=== PATIENT | female | born 1980 | race American Indian/Alaskan Native ===

== ENCOUNTER 2019-03-05 15:31 | Observation (INO) | payer BC, OTHER ==
--- NOTE | 2019-03-05 15:57 | Emergency Department Report ---
Blank Doc - Documentation Documentation: This is a 28-year-old female that presents with chest pain and SOB. Denies hi story of cardiac. Denies radiation of pain. This initial assessment/diagnostic orders/clinical plan/treatment(s) is/are subject to change based on patient's health status, clinical progression and re- assessment by fellow clinical providers in the ED. Further treatment and workup at subsequent clinical providers discretion. Patient/guardians urged not to elope from the ED as their condition may be serious if not clinically assessed and managed. Initial orders include: 1- Patient sent to MAIN ED for further evaluation and treatment 2-labs 3- EKG 4- CXR
[2019-03-05] MEDS ORDERED: ASPIRIN PO ONE (18:00)
[2019-03-05 18:18] LABS: Basophils % (Auto) 0.5 % (0.0-1.8); Eosinophils # (Auto) 0.1 K/mm3 (0.0-0.4); Eosinophils % (Auto) 2.1 % (0.0-4.3); Hematocrit 41.6 % (30.3-42.9); Hemoglobin 13.5 gm/dl (10.1-14.3); Lymphocytes % (Auto) 32.4 % (13.4-35.0); Mean Corpuscular HGB Conc 32 % (30-34); Mean Corpuscular Volume 84 fl (79-97); Monocytes # (Auto) 0.8 K/mm3 (0.0-0.8); Monocytes % (Auto) 12.7 % (0.0-7.3); Platelet Count 265 K/mm3 (140-440); Red Blood Count 4.96 M/mm3 (3.65-5.03); Red Cell Distribution Width 13.6 % (13.2-15.2)
[2019-03-05 18:30] LABS: INR 0.95 (0.87-1.13)
[2019-03-05 18:31] LABS: Partial Thromboplastin Time 27.9 Sec. (24.2-36.6)
--- NOTE | 2019-03-05 18:38 | Emergency Department Report ---
<NOE HORTA III - Last Filed: 03/06/19 02:31> ED Chest Pain HPI - General Chief Complaint: Chest Pain Stated Complaint: CHEST PAIN Time Seen by Provider: 03/05/19 15:55 - Related Data Allergies Allergy/AdvReac Type Severity Reaction Status Date / Time No Known Allergies Allergy Verified 03/05/19 23:41 ED Course - Consultations Consultation #1: Hospitalist consulted for admission. Hospitalist to admit patient. Hospitalist to assume care patient. Dr. Javed to see the patient 03/05/19 23:02 ED Medical Decision Making - Lab Data Result diagrams: 03/05/19 23:42 03/05/19 23:42 ED Disposition Clinical Impression: Abnormal EKG Chest pain Qualifiers: Chest pain type: unspecified Qualified Code(s): R07.9 - Chest pain, unspecified Disposition: OP ADMIT IP TO THIS HOSP Is pt being admited?: Yes Does the pt Need Aspirin: No Condition: Critical Time of Disposition: 02:31 <KAI VANCE - Last Filed: 03/06/19 02:35> ED Chest Pain HPI - General Source: patient Mode of arrival: Ambulatory Limitations: No Limitations - History of Present Illness Initial Comments: Pt is a 38 yo female who presents to the ED with c/o left sided CP that began yesterday. She states that the pain has been constant since 10 AM this morning. She states she has also had paresthesias down the left arm. She has associated SOB. The patient denies any N/V, fever, LE edema, cough, or any other sx. The patient states she traveled on a cruiseship to [facility] [place] last month. She denies any PMHx, she denies any previous hx of HTN. The patient states she takes daily vitamins but no other medications. She is a non smoker, occasion drinker, denies drug use. She denies any recent surgery or OCP use. She denies any personal or family cardiac hx. The patient denies any DVT/PE hx or family hx of DVT/PE. Severity scale (0 -10): 0 Heart Score - HEART Score History: Slightly suspicious EKG: Non-specific Age: < 45 Risk factors: No known risk factors Troponin: < normal limit HEART Score: 1 ED Review of Systems ROS: Stated complaint: CHEST PAIN Other details as noted in HPI Comment: All other systems reviewed and negative ED Past Medical Hx - Past Medical History Previous Medical History?: No - Surgical History Past Surgical History?: No - Social History Smoking Status: Never Smoker Substance Use Type: None ED Physical Exam - General Limitations: No Limitations General appearance: alert, in no apparent distress - Head Head exam: Present: atraumatic, normocephalic - Eye Eye exam: Present: normal appearance, PERRL - ENT ENT exam: Present: mucous membranes moist - Respiratory Respiratory exam: Present: normal lung sounds bilaterally. Absent: respiratory distress, wheezes, rales, rhonchi, stridor, chest wall tenderness, accessory muscle use, decreased breath sounds, prolonged expiratory - Cardiovascular Cardiovascular Exam: Present: regular rate, normal rhythm. Absent: systolic murmur, diastolic murmur, gallop - Neurological Exam Neurological exam: Present: alert, oriented X3 - Psychiatric Psychiatric exam: Present: normal affect, normal mood - Skin Skin exam: Present: warm, dry, intact ED Course Vital Signs 03/05/19 03/05/19 15:43 18:45 Temperature 97.9 F Pulse Rate 83 69 Respiratory 18 16 Rate Blood Pressure 162/100 120/80 [Left] O2 Sat by Pulse 99 100 Oximetry - Reevaluation(s) Reevaluation #1: 03/05/19 21:[address] Horta regarding pt and will admit pt to the hospital for further evaluation and management SANCHO score - Sancho Score Age > 65: (0) No Aspirin use within the Past 7 Days: (0) No 3 or more CAD Risk Factors: (0) No 2 or more Angina events in past 24 hrs: (1) Yes Known CAD with more than 50% Stenosis: (0) No Elevated Cardiac Markers: (0) No ST Deviation Greater than 0.5mm: (1) Yes SANCHO Score: 2 ED Medical Decision Making - Lab Data Result diagrams: 03/05/19 23:42 03/05/19 23:42 Lab Results 03/05/19 03/05/19 03/05/19 Range/Units 18:00 18:00 18:00 WBC 6.3 (4.5-11.0) K/mm3 RBC 4.96 (3.65-5.03) M/mm3 Hgb 13.5 (10.1-14.3) gm/dl Hct 41.6 (30.3-42.9) % MCV 84 (79-97) fl MCH 27 L (28-32) pg MCHC 32 (30-34) % RDW 13.6 (13.2-15.2) % Plt Count 265 (140-440) K/mm3 Lymph % (Auto) 32.4 (13.4-35.0) % [place] % (Auto) 12.7 H (0.0-7.3) % Eos % (Auto) 2.1 (0.0-4.3) % Baso % (Auto) 0.5 (0.0-1.8) % Lymph # 2.0 (1.2-5.4) K/mm3 [place] # 0.8 (0.0-0.8) K/mm3 Eos # 0.1 (0.0-0.4) K/mm3 Baso # 0.0 (0.0-0.1) K/mm3 Seg Neutrophils % 52.3 (40.0-70.0) % Seg Neutrophils # 3.3 (1.8-7.7) K/mm3 ESR 3 (0-20) mm/Hr PT 13.2 (12.2-14.9) Sec. INR 0.95 (0.87-1.13) APTT 27.9 (24.2-36.6) Sec. D-Dimer < 135.00 (0-234) ng/mlDDU Sodium (137-145) mmol/L Potassium (3.6-5.0) mmol/L Chloride (98-107) mmol/L Carbon Dioxide (22-30) mmol/L Anion Gap mmol/L BUN (7-17) mg/dL Creatinine (0.7-1.2) mg/dL Estimated GFR ml/min BUN/Creatinine Ratio % Glucose (65-100) mg/dL Calcium (8.4-10.2) mg/dL Troponin T (0.00-0.029) ng/mL C-Reactive Protein (0.00-1.30) mg/dL TSH (0.270-4.200) mlU/mL HCG, Qual Negative (Negative) Urine Opiates Screen Urine Methadone Screen Ur Barbiturates Screen Ur Phencyclidine Scrn Ur Amphetamines Screen U Benzodiazepines Scrn Urine Cocaine Screen U Marijuana (THC) Screen Drugs of Abuse Note 03/05/19 03/05/19 03/05/19 Range/Units 18:00 18:00 18:00 WBC (4.5-11.0) K/mm3 RBC (3.65-5.03) M/mm3 Hgb (10.1-14.3) gm/dl Hct (30.3-42.9) % MCV (79-97) fl MCH (28-32) pg MCHC (30-34) % RDW (13.2-15.2) % Plt Count (140-440) K/mm3 Lymph % (Auto) (13.4-35.0) % [place] % (Auto) (0.0-7.3) % Eos % (Auto) (0.0-4.3) % Baso % (Auto) (0.0-1.8) % Lymph # (1.2-5.4) K/mm3 [place] # (0.0-0.8) K/mm3 Eos # (0.0-0.4) K/mm3 Baso # (0.0-0.1) K/mm3 Seg Neutrophils % (40.0-70.0) % Seg Neutrophils # (1.8-7.7) K/mm3 ESR (0-20) mm/Hr PT (12.2-14.9) Sec. INR (0.87-1.13) APTT (24.2-36.6) Sec. D-Dimer (0-234) ng/mlDDU Sodium 138 (137-145) mmol/L Potassium 4.2 (3.6-5.0) mmol/L Chloride 99.4 (98-107) mmol/L Carbon Dioxide 28 (22-30) mmol/L Anion Gap 15 mmol/L BUN 11 (7-17) mg/dL Creatinine 0.7 (0.7-1.2) mg/dL Estimated GFR > 60 ml/min BUN/Creatinine Ratio 16 % Glucose 92 (65-100) mg/dL Calcium 10.7 H (8.4-10.2) mg/dL Troponin T < 0.010 (0.00-0.029) ng/mL C-Reactive Protein 0.00 (0.00-1.30) mg/dL TSH 1.890 (0.270-4.200) mlU/mL HCG, Qual (Negative) Urine Opiates Screen Urine Methadone Screen Ur Barbiturates Screen Ur Phencyclidine Scrn Ur Amphetamines Screen U Benzodiazepines Scrn Urine Cocaine Screen U Marijuana (THC) Screen Drugs of Abuse Note 03/05/19 03/05/19 Range/Units 18:30 20:10 WBC (4.5-11.0) K/mm3 RBC (3.65-5.03) M/mm3 Hgb (10.1-14.3) gm/dl Hct (30.3-42.9) % MCV (79-97) fl MCH (28-32) pg MCHC (30-34) % RDW (13.2-15.2) % Plt Count (140-440) K/mm3 Lymph % (Auto) (13.4-35.0) % [place] % (Auto) (0.0-7.3) % Eos % (Auto) (0.0-4.3) % Baso % (Auto) (0.0-1.8) % Lymph # (1.2-5.4) K/mm3 [place] # (0.0-0.8) K/mm3 Eos # (0.0-0.4) K/mm3 Baso # (0.0-0.1) K/mm3 Seg Neutrophils % (40.0-70.0) % Seg Neutrophils # (1.8-7.7) K/mm3 ESR (0-20) mm/Hr PT (12.2-14.9) Sec. INR (0.87-1.13) APTT (24.2-36.6) Sec. D-Dimer (0-234) ng/mlDDU Sodium (137-145) mmol/L Potassium (3.6-5.0) mmol/L Chloride (98-107) mmol/L Carbon Dioxide (22-30) mmol/L Anion Gap mmol/L BUN (7-17) mg/dL Creatinine (0.7-1.2) mg/dL Estimated GFR ml/min BUN/Creatinine Ratio % Glucose (65-100) mg/dL Calcium (8.4-10.2) mg/dL Troponin T < 0.010 (0.00-0.029) ng/mL C-Reactive Protein (0.00-1.30) mg/dL TSH (0.270-4.200) mlU/mL HCG, Qual (Negative) Urine Opiates Screen Presumptive negative Urine Methadone Screen Presumptive negative Ur Barbiturates Screen Presumptive negative Ur Phencyclidine Scrn Presumptive negative Ur Amphetamines Screen Presumptive negative U Benzodiazepines Scrn Presumptive negative Urine Cocaine Screen Presumptive negative U Marijuana (THC) Screen Presumptive negative Drugs of Abuse Note Disclamer - Radiology Data Radiology results: report reviewed PROCEDURE: Chest. TECHNIQUE: PA and lateral views. HISTORY: Chest pain. COMPARISONS: None. FINDINGS: The heart and mediastinum appear normal. The lungs are clear and well expanded. There are no pleural effusions. The soft tissues and regional skeleton are unremarkable. IMPRESSION: Normal study. This document is electronically signed by Ricardo Umaña MD., Mar 05 2019 09:19:05 PM ET - Medical Decision Making abnormal EKG findings, trop is negative x 2, d-dimer is negative, rest of labs WNL pt will be admitted to the hospital by hospitalist for further evaluation and management with cardiology consultation - Differential Diagnosis AMI, PE, pericarditis, angina Critical care attestation.: If time is entered above; I have spent that time in minutes in the direct care of this critically ill patient, excluding procedure time.
[2019-03-05 18:39] LABS: BUN/Creatinine Ratio 16; Blood Urea Nitrogen 11 mg/dL (7-17); Calcium 10.7 mg/dL (8.4-10.2); Hemolysis Index 8
[2019-03-05 18:48] LABS: Amphetamine Screen,Urine PRESUMPTIVE NEGATIVE; Benzodiazepines Screen,Urine PRESUMPTIVE NEGATIVE; Cannabinoid Screen,Urine PRESUMPTIVE NEGATIVE; Cocaine Screen,Urine PRESUMPTIVE NEGATIVE; Methadone Screen,Urine PRESUMPTIVE NEGATIVE; Opiate Screen,Urine PRESUMPTIVE NEGATIVE
[2019-03-05 18:59] LABS: Erythrocyte Sedimentation Rate 3 mm/Hr (0-20)
--- NOTE | 2019-03-05 21:21 | XRay Report ---
PROCEDURE: Chest. TECHNIQUE: PA and lateral views. HISTORY: Chest pain. COMPARISONS: None. FINDINGS: The heart and mediastinum appear normal. The lungs are clear and well expanded. There are no pleural effusions. The soft tissues and regional skeleton are unremarkable. IMPRESSION: Normal study. This document is electronically signed by Ricardo Umaña MD., Mar 05 2019 09:19:05 PM ET
[2019-03-05] MEDS ORDERED: MORPHINE IV PRN (23:22)
[2019-03-05] MEDS ORDERED: SODIUM CHLORIDE FLUSH SYRINGE 10 ML IV PRN ×2 (23:22)
[2019-03-05] MEDS ORDERED: TYLENOL PO PRN (23:22)
[2019-03-05] MEDS ORDERED: ZOFRAN IV PRN (23:22)
[2019-03-05] MEDS ORDERED: PERCOCET 5/325 PO PRN (23:22)
[2019-03-06 00:01] LABS: Basophils % (Auto) 0.4 % (0.0-1.8); Eosinophils # (Auto) 0.1 K/mm3 (0.0-0.4); Eosinophils % (Auto) 1.5 % (0.0-4.3); Hematocrit 42.1 % (30.3-42.9); Hemoglobin 13.8 gm/dl (10.1-14.3); Lymphocytes % (Auto) 28.7 % (13.4-35.0); Mean Corpuscular HGB Conc 33 % (30-34); Mean Corpuscular Volume 83 fl (79-97); Monocytes # (Auto) 0.8 K/mm3 (0.0-0.8); Monocytes % (Auto) 10.9 % (0.0-7.3); Platelet Count 249 K/mm3 (140-440); Red Blood Count 5.07 M/mm3 (3.65-5.03); Red Cell Distribution Width 13.2 % (13.2-15.2)
[2019-03-06 00:21] LABS: BUN/Creatinine Ratio 14; Blood Urea Nitrogen 10 mg/dL (7-17); Hemolysis Index 11
--- NOTE | 2019-03-06 00:21 | History and Physical Report ---
<CHAD SHOEMAKER - Last Filed: 03/06/19 03:56> History of Present Illness Date of examination: 03/05/19 Date of admission: 03/05/2019 Chief complaint: Chest pain 2 days History of present illness: Pt is a 38 year old female with PMHx of heartburn who presents to the ER with c/o of chest pain x 2 days. Patient states that the pain is a constant pain, located on the left substernal area that started since yesterday. Pt states that the pain is worse today, it is associated with SOB, and radiates to the left arm causing tingling and paresthesias, pt states that she decided to go to the ER for further evaluation of the chest pain. Pt reports a history of heart saldana for which she uses home remedy that is usually resolves the heart saldana. Pt report family history of heart disease, father had an PR, younger brother at age 55 with an PR. Patient denies history of smoking or alcohol used, she also denies palpitation, denies diaphoresis, denies nausea or vomiting, denies cough, denies any recent illness. In the ER, pt had an EKG that was abnormal, her first cardiac enzyme was negative, cardiology was consulted, and pt is admitted for further evaluation of her chest pain. Past History Past Medical History: No medical history Past Surgical History: No surgical history Social history: no significant social history Family history: other (father had an PR, older brother that at age 55 of a heart attack) Medications and Allergies Allergies Allergy/AdvReac Type Severity Reaction Status Date / Time No Known Allergies Allergy Verified 03/05/19 23:41 Active Meds: Active Medications Acetaminophen (Tylenol) 650 mg PO Q4H PRN PRN Reason: Pain MILD(1-3)/Fever >100.5/ZEE Aspirin (Ecotrin) 325 mg PO QDAY SUSANA Atorvastatin Calcium (Lipitor) 10 mg PO QHS SUSANA Morphine Sulfate (Morphine) 2 mg IV Q4H PRN PRN Reason: Pain, Moderate (4-6) Ondansetron HCl (Zofran) 4 mg IV Q8H PRN PRN Reason: Nausea And Vomiting Oxycodone/Acetaminophen (Percocet 5/325) 1 tab PO Q6H PRN PRN Reason: Pain, Moderate (4-6) Sodium Chloride (Sodium Chloride Flush Syringe 10 Ml) 10 ml IV PRN PRN PRN Reason: LINE FLUSH Sodium Chloride (Sodium Chloride Flush Syringe 10 Ml) 10 ml IV BID SUSANA Review of Systems Cardiovascular: no chest pain Respiratory: shortness of breath Exam - Constitutional Vitals: Temp Pulse Resp BP Pulse Ox 97.9 F 69 16 120/80 100 03/05/19 15:43 03/05/19 18:45 03/05/19 18:45 03/05/19 18:45 03/05/19 18:45 General appearance: Present: no acute distress - EENT Eyes: Present: PERRL, EOM intact ENT: hearing intact - Neck Neck: Present: normal ROM - Respiratory Respiratory effort: normal Respiratory: right: CTA - Cardiovascular Rhythm: regular Heart Sounds: Present: S1 & S2 - Extremities Extremities: no ischemia, Full ROM Peripheral Pulses: within normal limits - Abdominal General gastrointestinal: Present: soft, non-tender, non-distended Female genitourinary: Present: deferred - Rectal Rectal Exam: deferred - Integumentary Integumentary: Present: warm, dry - Musculoskeletal Musculoskeletal: strength equal bilaterally - Psychiatric Psychiatric: cooperative - Neurologic Neurologic: moves all extremities Results - Labs CBC & Chem 7: 03/05/19 23:42 03/05/19 23:42 Labs: Laboratory Last Values WBC 7.1 K/mm3 (4.5-11.0) 03/05/19 23:42 RBC 5.07 M/mm3 (3.65-5.03) H 03/05/19 23:42 Hgb 13.8 gm/dl (10.1-14.3) 03/05/19 23:42 Hct 42.1 % (30.3-42.9) 03/05/19 23:42 MCV 83 fl (79-97) 03/05/19 23:42 MCH 27 pg (28-32) L 03/05/19 23:42 MCHC 33 % (30-34) 03/05/19 23:42 RDW 13.2 % (13.2-15.2) 03/05/19 23:42 Plt Count 249 K/mm3 (140-440) 03/05/19 23:42 Lymph % (Auto) 28.7 % (13.4-35.0) 03/05/19 23:42 [place] % (Auto) 10.9 % (0.0-7.3) H 03/05/19 23:42 Eos % (Auto) 1.5 % (0.0-4.3) 03/05/19 23:42 Baso % (Auto) 0.4 % (0.0-1.8) 03/05/19 23:42 Lymph # 2.0 K/mm3 (1.2-5.4) 03/05/19 23:42 [place] # 0.8 K/mm3 (0.0-0.8) 03/05/19 23:42 Eos # 0.1 K/mm3 (0.0-0.4) 03/05/19 23:42 Baso # 0.0 K/mm3 (0.0-0.1) 03/05/19 23:42 Seg Neutrophils % 58.5 % (40.0-70.0) 03/05/19 23:42 Seg Neutrophils # 4.1 K/mm3 (1.8-7.7) 03/05/19 23:42 ESR 3 mm/Hr (0-20) 03/05/19 18:00 PT 13.2 Sec. (12.2-14.9) 03/05/19 18:00 INR 0.95 (0.87-1.13) 03/05/19 18:00 APTT 27.9 Sec. (24.2-36.6) 03/05/19 18:00 D-Dimer < 135.00 ng/mlDDU (0-234) 03/05/19 18:00 Sodium 137 mmol/L (137-145) 03/05/19 23:42 Potassium 4.4 mmol/L (3.6-5.0) 03/05/19 23:42 Chloride 98.4 mmol/L (98-107) 03/05/19 23:42 Carbon Dioxide 27 mmol/L (22-30) 03/05/19 23:42 Anion Gap 16 mmol/L 03/05/19 23:42 BUN 10 mg/dL (7-17) 03/05/19 23:42 Creatinine 0.7 mg/dL (0.7-1.2) 03/05/19 23:42 Estimated GFR > 60 ml/min 03/05/19 23:42 BUN/Creatinine Ratio 14 % 03/05/19 23:42 Glucose 129 mg/dL (65-100) H 03/05/19 23:42 Calcium 11.0 mg/dL (8.4-10.2) H 03/05/19 23:42 Troponin T < 0.010 ng/mL (0.00-0.029) 03/05/19 20:10 C-Reactive Protein 0.00 mg/dL (0.00-1.30) 03/05/19 18:00 TSH 1.890 mlU/mL (0.270-4.200) 03/05/19 18:00 HCG, Qual Negative (Negative) 03/05/19 18:00 Urine Opiates Screen Presumptive negative 03/05/19 18:30 Urine Methadone Screen Presumptive negative 03/05/19 18:30 Ur Barbiturates Screen Presumptive negative 03/05/19 18:30 Ur Phencyclidine Scrn Presumptive negative 03/05/19 18:30 Ur Amphetamines Screen Presumptive negative 03/05/19 18:30 U Benzodiazepines Scrn Presumptive negative 03/05/19 18:30 Urine Cocaine Screen Presumptive negative 03/05/19 18:30 U Marijuana (THC) Screen Presumptive negative 03/05/19 18:30 Drugs of Abuse Note Disclamer 03/05/19 18:30 Assessment and Plan Assessment and plan: 1. Chest pain rule out ACS 2. History of heartburn 3. Family history of PR Plan: Patient is admitted for chest pain rule out PR Continue cardiac enzymes every 6 hours 2 more Continue to monitor cardiac status Vital signs every 4 hours Consult cardiology for chest pain Supportive care Plan of care Discussed with patient, voiced understanding Patient's condition and plan of care discussed with Dr. Quesada Advance Directives: Yes VTE prophylaxis?: Mechanical Plan of care discussed with patient/family: Yes <ELLA RUBY - Last Filed: 03/06/19 21:24> History of Present Illness Date of admission: 03/05/19 23:23 Exam - Constitutional Vitals: Temp Pulse Resp BP Pulse Ox 98.1 F 79 18 110/77 100 03/06/19 11:45 03/06/19 11:45 03/06/19 11:45 03/06/19 11:45 03/06/19 13:06 Results - Labs CBC & Chem 7: 03/05/19 23:42 03/05/19 23:42 Labs: Laboratory Last Values WBC 7.1 K/mm3 (4.5-11.0) 03/05/19 23:42 RBC 5.07 M/mm3 (3.65-5.03) H 03/05/19 23:42 Hgb 13.8 gm/dl (10.1-14.3) 03/05/19 23:42 Hct 42.1 % (30.3-42.9) 03/05/19 23:42 MCV 83 fl (79-97) 03/05/19 23:42 MCH 27 pg (28-32) L 03/05/19 23:42 MCHC 33 % (30-34) 03/05/19 23:42 RDW 13.2 % (13.2-15.2) 03/05/19 23:42 Plt Count 249 K/mm3 (140-440) 03/05/19 23:42 Lymph % (Auto) 28.7 % (13.4-35.0) 03/05/19 23:42 [place] % (Auto) 10.9 % (0.0-7.3) H 03/05/19 23:42 Eos % (Auto) 1.5 % (0.0-4.3) 03/05/19 23:42 Baso % (Auto) 0.4 % (0.0-1.8) 03/05/19 23:42 Lymph # 2.0 K/mm3 (1.2-5.4) 03/05/19 23:42 [place] # 0.8 K/mm3 (0.0-0.8) 03/05/19 23:42 Eos # 0.1 K/mm3 (0.0-0.4) 03/05/19 23:42 Baso # 0.0 K/mm3 (0.0-0.1) 03/05/19 23:42 Seg Neutrophils % 58.5 % (40.0-70.0) 03/05/19 23:42 Seg Neutrophils # 4.1 K/mm3 (1.8-7.7) 03/05/19 23:42 ESR 3 mm/Hr (0-20) 03/05/19 18:00 PT 13.2 Sec. (12.2-14.9) 03/05/19 18:00 INR 0.95 (0.87-1.13) 03/05/19 18:00 APTT 27.9 Sec. (24.2-36.6) 03/05/19 18:00 D-Dimer < 135.00 ng/mlDDU (0-234) 03/05/19 18:00 Sodium 137 mmol/L (137-145) 03/05/19 23:42 Potassium 4.4 mmol/L (3.6-5.0) 03/05/19 23:42 Chloride 98.4 mmol/L (98-107) 03/05/19 23:42 Carbon Dioxide 27 mmol/L (22-30) 03/05/19 23:42 Anion Gap 16 mmol/L 03/05/19 23:42 BUN 10 mg/dL (7-17) 03/05/19 23:42 Creatinine 0.7 mg/dL (0.7-1.2) 03/05/19 23:42 Estimated GFR > 60 ml/min 03/05/19 23:42 BUN/Creatinine Ratio 14 % 03/05/19 23:42 Glucose 129 mg/dL (65-100) H 03/05/19 23:42 Hemoglobin A1c 6.5 % (4-6) H 03/05/19 23:42 Calcium 11.0 mg/dL (8.4-10.2) H 03/05/19 23:42 Troponin T < 0.010 ng/mL (0.00-0.029) 03/06/19 05:07 C-Reactive Protein 0.00 mg/dL (0.00-1.30) 03/05/19 18:00 Triglycerides 104 mg/dL (2-149) 03/05/19 23:42 Cholesterol 265 mg/dL (50-199) H 03/05/19 23:42 LDL Cholesterol Direct 210 mg/dL (50-130) H 03/05/19 23:42 HDL Cholesterol 61 mg/dL (40-59) H 03/05/19 23:42 Cholesterol/HDL Ratio 4.34 % 03/05/19 23:42 TSH 1.890 mlU/mL (0.270-4.200) 03/05/19 18:00 HCG, Qual Negative (Negative) 03/05/19 18:00 Urine Opiates Screen Presumptive negative 03/05/19 18:30 Urine Methadone Screen Presumptive negative 03/05/19 18:30 Ur Barbiturates Screen Presumptive negative 03/05/19 18:30 Ur Phencyclidine Scrn Presumptive negative 03/05/19 18:30 Ur Amphetamines Screen Presumptive negative 03/05/19 18:30 U Benzodiazepines Scrn Presumptive negative 03/05/19 18:30 Urine Cocaine Screen Presumptive negative 03/05/19 18:30 U Marijuana (THC) Screen Presumptive negative 03/05/19 18:30 Drugs of Abuse Note Disclamer 03/05/19 18:30 Assessment and Plan Assessment and plan: I personally discussed the patient with the REMEDIAL TEACHER-C and I agree with the above assessment and plan
[2019-03-06 01:55] LABS: Chol/HDL Ratio 4.34 %
[2019-03-06] MEDS ORDERED: SODIUM CHLORIDE FLUSH SYRINGE 10 ML IV SCH (10:00)
[2019-03-06] MEDS ORDERED: ECOTRIN PO SCH (10:00)
--- NOTE | 2019-03-06 11:15 | Consultation ---
History of Present Illness Consult date: 03/06/19 Requesting physician: EDINSON SARAVIA Consult reason: chest pain History of present illness: 38-year-old female and having recurrent on and off chest discomfort pressure- like sharp in nature was been treating it with justo thinking is gas and GI required hospitalization because of ongoing chest pressures gotten better but had an abnormal EKG and was admitted negative cardiac enzymes patient exercised on Ronnie protocol 9 minutes Ronnie protocol without EKG changes and normal myocardial perfusion and normal LV function. Patient has no nausea no vomiting and no syncope patient or melena Past History Past Medical History: No medical history Past Surgical History: No surgical history Social history: no significant social history Family history: other (father had an [place], older brother that at age 55 of a heart attack) Medications and Allergies Allergies Allergy/AdvReac Type Severity Reaction Status Date / Time No Known Allergies Allergy Verified 03/05/19 23:41 Active Meds: Active Medications Acetaminophen (Tylenol) 650 mg PO Q4H PRN PRN Reason: Pain MILD(1-3)/Fever >100.5/ZEE Aspirin (Ecotrin) 325 mg PO QDAY SUSANA Atorvastatin Calcium (Lipitor) 10 mg PO QHS SUSANA Morphine Sulfate (Morphine) 2 mg IV Q4H PRN PRN Reason: Pain, Moderate (4-6) Ondansetron HCl (Zofran) 4 mg IV Q8H PRN PRN Reason: Nausea And Vomiting Oxycodone/Acetaminophen (Percocet 5/325) 1 tab PO Q6H PRN PRN Reason: Pain, Moderate (4-6) Sodium Chloride (Sodium Chloride Flush Syringe 10 Ml) 10 ml IV PRN PRN PRN Reason: LINE FLUSH Sodium Chloride (Sodium Chloride Flush Syringe 10 Ml) 10 ml IV BID SUSANA Review of Systems All systems: negative (hpi) Physical Examination Vital Signs Temp Pulse Resp BP Pulse Ox 97.9 F 83 18 162/100 99 03/05/19 15:43 03/05/19 15:43 03/05/19 15:43 03/05/19 15:43 03/05/19 15:43 General appearance: no acute distress, well-nourished HEENT: Positive: PERRL, Mucus Membranes Moist Neck: Positive: neck supple, trachea midline Cardiac: Positive: Reg Rate and Rhythm, S1/S2. Negative: Audible Murmur Lungs: Positive: clear to auscultation, Normal Breath Sounds Neuro: Positive: Grossly Intact Abdomen: Positive: Soft, Active Bowel Sounds. Negative: Tender, Distended Female genitourinary: deferred Skin: Positive: Clear Incision: Cardiac Cath Site Musculoskeletal: No Pain, Normal Range of Motion Extremities: Present: normal. Absent: edema Results 03/05/19 23:42 03/05/19 23:42 Coagulation 03/05/19 Range/Units 18:00 PT 13.2 (12.2-14.9) Sec. INR 0.95 (0.87-1.13) APTT 27.9 (24.2-36.6) Sec. Lipids 03/05/19 Range/Units 23:42 Triglycerides 104 (2-149) mg/dL Cholesterol 265 H (50-199) mg/dL HDL Cholesterol 61 H (40-59) mg/dL Cholesterol/HDL Ratio 4.34 % CBC 03/05/19 03/05/19 Range/Units 18:00 23:42 WBC 6.3 7.1 (4.5-11.0) K/mm3 RBC 4.96 5.07 H (3.65-5.03) M/mm3 Hgb 13.5 13.8 (10.1-14.3) gm/dl Hct 41.6 42.1 (30.3-42.9) % Plt Count 265 249 (140-440) K/mm3 Lymph # 2.0 2.0 (1.2-5.4) K/mm3 [place] # 0.8 0.8 (0.0-0.8) K/mm3 Eos # 0.1 0.1 (0.0-0.4) K/mm3 Baso # 0.0 0.0 (0.0-0.1) K/mm3 Comprehensive Metabolic Panel 03/05/19 03/05/19 Range/Units 18:00 23:42 Sodium 138 137 (137-145) mmol/L Potassium 4.2 4.4 (3.6-5.0) mmol/L Chloride 99.4 98.4 (98-107) mmol/L Carbon Dioxide 28 27 (22-30) mmol/L BUN 11 10 (7-17) mg/dL Creatinine 0.7 0.7 (0.7-1.2) mg/dL Glucose 92 129 H (65-100) mg/dL Calcium 10.7 H 11.0 H (8.4-10.2) mg/dL - Imaging and Cardiology Stress echo: other (normal myocardial perfusion scan no significant ischemia) EKG interpretations - Telemetry EKG Rhythm: Sinus Rhythm (no sinus rhythm T wave inversion V1) Assessment and Plan Chest pain probable GI Hyperlipidemia Recommendations discharge on Protonix 40 mg daily treating elevated LDL with statin patient will follow with primary care doctor and be discharged
--- NOTE | 2019-03-06 11:26 | Discharge Summary ---
Providers - Providers Date of Admission: 03/05/19 23:23 Date of discharge: 03/06/19 Attending physician: EDINSON SARAVIA 03/05/19 Consult to Cardiac Rehabilitation [CONS] Routine Reason For Exam: Phase I 03/05/19 23:24 Consult to Cardiology [CONS] Routine Consulting Provider: TYLER DUONG Reason For Exam: chest pain Primary care physician: RYAN PANTOJA Hospitalization Condition: Good Hospital course: Patient presented with upper abdominal chest discomfort pressure and gas. It was associated with chest pain. Had abnormal EKG brought in ruled out via cardiac isoenzymes as well as stress thallium. Patient stable for discharge. Remains chest pain-free. Chest pain secondary to GI causes will discharge with proton pump inhibitor daily. Follow-up with primary care physician. Patient also has elevated LDL to be treated with atorvastatin and also follow primary care physician. Disposition: TO HOME OR SELFCARE - Discharge Diagnoses (1) GERD (gastroesophageal reflux disease) Status: Acute Comment: home with PPI (2) Abnormal EKG Status: Acute Comment: r/o CAD (3) Chest pain Status: Acute Qualifiers: Chest pain type: unspecified Qualified Code(s): R07.9 - Chest pain, unspecified Comment: secondary to GERD (4) Hyperlipidemia Status: Acute Comment: statin upon d/c Core Measure Documentation - Palliative Care Palliative Care/ Comfort Measures: Not Applicable - Core Measures Any of the following diagnoses?: none Exam - Constitutional Vitals: Temp Pulse Resp BP Pulse Ox 98.2 F 73 12 121/82 100 03/06/19 07:31 03/06/19 07:31 03/06/19 07:31 03/06/19 09:40 03/06/19 07:31 General appearance: Present: no acute distress, well-nourished - EENT Eyes: Present: PERRL ENT: hearing intact, clear oral mucosa - Neck Neck: Present: supple, normal ROM - Respiratory Respiratory effort: normal Respiratory: bilateral: CTA - Cardiovascular Heart Sounds: Present: S1 & S2. Absent: rub, click - Extremities Extremities: pulses symmetrical, No edema Peripheral Pulses: within normal limits - Abdominal General gastrointestinal: Present: soft, non-tender, non-distended, normal bowel sounds Female genitourinary: Present: normal - Integumentary Integumentary: Present: clear, warm, dry - Musculoskeletal Musculoskeletal: gait normal, strength equal bilaterally - Psychiatric Psychiatric: appropriate mood/affect, intact judgment & insight - Neurologic Neurologic: CNII-XII intact, moves all extremities Plan Activity: no restrictions Weight Bearing Status: Full Weight Bearing Diet: low cholesterol Follow up with: RYAN PANTOJA MD [Primary Care Provider] - 3-5 Days EDINSON SARAVIA MD [Staff Physician] - 7 Days Prescriptions: AtorvaSTATin [Lipitor] 10 mg PO QHS #30 tablet
[2019-03-06 11:46] VITALS: BP 110/77
--- NOTE | 2019-03-07 02:24 | Treadmill Report ---
REASON FOR STUDY: Chest pain. READING PHYSICIAN: Eduin Barrera MD IMAGING PROTOCOL: The patient received 10 mCi of Technetium 99m Tetrofosmin for resting image and 28 mCi of Technetium 99m Tetrofosmin for stress imaging. The imaging for the whole procedure was completed 30-90 minutes following the initial injection of Technetium 99m Tetrofosmin. The SPECT imaging in the 180 degree arc was performed in the right anterior oblique projection. Computerized reconstruction of the images was performed for analysis. IMAGING RESULTS: Normal cavity size from stress to rest. Normal distribution of radionuclide in the anterior, inferior, septal and apical regions. Gated SPECT, EF is 62% with no wall motion abnormality. The patient exercised on Ronnie protocol for 9 minutes. No EKG changes or arrhythmia suggestive of ischemia. No exaggerated BP response to exercise. The patient achieved 90% max predicted heart rate. SUMMARY: 1. Negative treadmill EKG. 2. Good exercise capacity 9 minutes Ronnie protocol. 3. No exaggerated BP response to exercise. 4. Normal rest and stress myocardial perfusion scan. No significant stress ischemia. No wall motion abnormality. Gated SPECT, EF of 62%. JOB# [id number] JULIETTE/MACHO
== END 2019-03-06 13:50 | disposition home or self-care (01) ==
LOC: ED 15:31 → INTOOBSV 23:23 → 4A 23:23
PROVIDERS: ADMIT Internal Medicine; ATTEND Internal Medicine
DX: R07.89 Other chest pain (principal); K21.9 Gastro-esophageal reflux disease without esophagitis; E78.5 Hyperlipidemia, unspecified; R94.31 Abnormal electrocardiogram [ECG] [EKG]; Z87.19 Personal history of other diseases of the digestive system; Z82.49 Family history of ischemic heart disease and other diseases of the circulatory system; Z79.82 Long term (current) use of aspirin; Z79.899 Other long term (current) drug therapy
CPT/HCPCS: 36415; 71046; 78452; 80048; 80061; 80307; 83036; 84443; 84484; 84703; 85025; 85379; 85610; 85652; 85730; 86140; 93005; 93010; 93017; 99284; A9502; G0378; 99285